=== PATIENT | male | born 1975 | race Caucasian/White ===

== ENCOUNTER 2021-07-12 12:11 | Emergency (ER) | payer SELFPAY ==
[2021-07-12 13:42] LABS: #Basophils 0.1 10x3/uL (0.0-0.2); #Eosinphils 0.3 10x3/uL (0.0-0.5); #Monocytes 0.7 10x3/uL (0.0-1.1); #Neutrophils 5.3 10x3/uL (1.5-8.4); %Eosinophils 3.4 % (0.0-6.0); %Lymphocytes 22.5 % (18.0-47.0); %Monocytes 8.4 % (0.0-10.0); Hemoglobin 14.5 g/dL (13.5-17.5); Mean Corpuscular HGB CONC 34.3 g/dL (32.0-36.0); Mean Corpuscular Hemoglobin 31.3 pg (27.0-33.0); Mean Corpuscular Volume 91.2 fl (81.2-95.1); Mean Platelet Volume 10.2 fl (7.4-10.4); Platelet Count 214 10x3/uL (150-450); RBC Distribution Width 13.7 % (11.5-14.5); Red Blood Cell (RBC) Count 4.64 10x6/uL (4.32-5.72); White Blood Cell (WBC) Count 8.3 10x3/uL (3.5-10.5)
[2021-07-12 13:51] LABS: Chloride 102 mmol/L (98-107); Potassium 4.6 mmol/L (3.5-5.1); Sodium 140 mmol/L (136-145)
[2021-07-12 14:32] LABS: ALT (SGPT) 48 U/L (8-55); AST (SGOT) 45 U/L (5-34); Albumin 4.1 g/dL (3.5-5.0); Alkaline Phosphatase 52 U/L (40-110); Anion Gap 18 mmol/L (10-20); BUN (Urea Nitrogen) 12 mg/dL (8.9-20.6); Bilirubin, Total 0.4 mg/dL (0.2-1.2); Calc. Creatinine Clearance 0 mL/min (70-130); Calcium 9.6 mg/dL (7.8-10.44); Carbon Dioxide 25 mmol/L (22-29); Glucose 99 mg/dL (70-105); Protein, Total 8.1 g/dL (6.0-8.3)
== END 2021-07-12 16:44 | disposition home or self-care (01) ==
LOC: CSHERS 12:11
DX: R06.02 Shortness of breath (principal); I10 Essential (primary) hypertension; I87.8 Other specified disorders of veins; L03.115 Cellulitis of right lower limb; L03.116 Cellulitis of left lower limb; E66.9 Obesity, unspecified; F17.210 Nicotine dependence, cigarettes, uncomplicated
CPT/HCPCS: 36415; 71045; 80053; 83605; 83880; 84484; 85025; 93005